=== PATIENT | male | born 1995 | race Caucasian/White ===

== ENCOUNTER 2018-03-22 15:37 | Emergency (ER) | payer OTHER ==
[2018-03-22] MEDS ORDERED: Diazepam TAB(*) 5 MG PO ONE (18:09)
[2018-03-22] MEDS ORDERED: Acetaminophen TAB* 325 MG PO ONE (18:09)
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
[2018-03-22 19:36] VITALS: BP 130/82
== END 2018-03-22 19:35 | disposition home or self-care (01) ==
LOC: ED 15:37
DX: S06.0X9A Concussion with loss of consciousness of unspecified duration, initial encounter (principal); V40.6XXA Car passenger injured in collision with pedestrian or animal in traffic accident, initial encounter; Y92.9 Unspecified place or not applicable
CPT/HCPCS: 70450; 99282; A9270-GY